=== PATIENT | male | born 1940 | race Caucasian/White ===

== ENCOUNTER → 2019-02-03 | Day surgery (SDC) | payer MEDICARE ==
[2019-01-26 11:15] LABS: BASOPHILS # (AUTO) 0.1 (0.0-0.1); BASOPHILS % 0.8 % (0.0-1.0); EOSINOPHILS # (AUTO) 0.2 (0.0-0.4); HEMATOCRIT 42.9 % (38.2-49.6); HEMOGLOBIN 13.8 g/dL (14.0-18.0); LYMPHOCYTES # (AUTO) 2.4 (1.0-3.2); LYMPHOCYTES % 31.5 % (18.0-39.1); MEAN CORPUSCULAR HEMOGLOBIN 30.4 pg (28-32); MEAN CORPUSCULAR HGB CONC 32.2 g/dL (31-35); MEAN CORPUSCULAR VOLUME 94.5 fL (81-99); MONOCYTES # (AUTO) 0.7 (0.2-0.8); MONOCYTES % 9.4 % (4.4-11.3); NEUTROPHILS # (AUTO) 4.2 (2.1-6.9); PLATELET COUNT 158 x10e3/uL (140-360); RED BLOOD COUNT 4.54 x10e6/uL (4.3-5.7); RED CELL DISTRIBUTION WIDTH 13.2 % (11.7-14.4)
[~2019-02-03] MED LIST: CARVEDILOL3.125 MG PO; FENTANYL CITRATE/PF 100MCG/2 ML INJ ONE; FLOMAX0.4 MG PO; PLAVIX75 MG PO; PROPOFOL IV EMULSION 10 MG/ML 50 ML VIAL ONE; SIMVASTATIN10 MG PO
--- NOTE | 2019-02-03 07:10 | NUR ---
SPIRITUAL CARE - Pre-Surgery Assessment: Pt in bed. Pt's at bedside. Pt reported supportive attention from family and friends. Intervention: I provided pastoral presence, hospitality, and sympathetic listening. I acquainted pt with availability of tailer in while hospitalized. Outcome: Pt expressed appreciation for visit. No need for follow up indicated at this time. [facility] Department O: [phone] Pager: [phone] ([phone] number calling from)
[2019-02-03 09:42] VITALS: BP 135/76
== END | disposition home or self-care (01) ==
LOC: OR 05:23
PROVIDERS: ATTEND Internal Medicine Gastroenterology
DX: R13.10 Dysphagia, unspecified (principal); K29.70 Gastritis, unspecified, without bleeding; K64.8 Other hemorrhoids; Z71.3 Dietary counseling and surveillance; E66.3 Overweight; I25.810 Atherosclerosis of coronary artery bypass graft(s) without angina pectoris; I45.10 Unspecified right bundle-branch block; J45.909 Unspecified asthma, uncomplicated; I10 Essential (primary) hypertension; Z88.0 Allergy status to penicillin; Z01.810 Encounter for preprocedural cardiovascular examination; Z01.812 Encounter for preprocedural laboratory examination; Z79.02 Long term (current) use of antithrombotics/antiplatelets; Z68.28 Body mass index [BMI] 28.0-28.9, adult; Z87.891 Personal history of nicotine dependence; Z95.1 Presence of aortocoronary bypass graft
CPT/HCPCS: 36415; 43239; 43249; 45378; 85025; 88305; 88312; 93005; J2704; J3010

== ENCOUNTER 2019-10-05 21:21 | Emergency (ER) | payer MEDICARE ==
[~2019-10-05 21:21] MED LIST changes: -FENTANYL CITRATE/PF 100MCG/2 ML INJ ONE; -PROPOFOL IV EMULSION 10 MG/ML 50 ML VIAL ONE
[2019-10-05] MEDS ORDERED: HYDRALAZINE HCL 20 MG/ML VIAL IV STA (21:41)
[2019-10-05] MEDS ORDERED: HYDRALAZINE HCL 20 MG/ML VIAL ONE (21:58)
--- NOTE | 2019-10-05 22:00 | NUR ---
INFORMED MD OF BP COMING DOWN WITHOUT MED. STATES HOLD HYDRALAZINE FOR NOW.
--- NOTE | 2019-10-05 22:52 | Emergency Department Note ---
History of Present Illnes History of Present Illness Chief Complaint: Hypertension History of Present Illness This is a 79 year old male . 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 Any updates have been documented here. Past Medical History Recent Fever: No Clinical Suspicion of Infectio: No New/Unexplained Change in Ment: No Past Medical History: Hypertension Other Medical History: ENLARGED PROSTATE Past Surgical History: Appendectomy Other Surgery: TRIPLE BYPASS 2007 Social History Smoking Cessation: Former smoker Alcohol Use: None Any Illegal Drug Use: No TB Exposure/Symptoms: No Physically hurt or threatened: No Other Last Tetanus: UNK Any Pre-Existing Lines (PICC,: No Is patient up to date on immun: No Last Flu: UNKNOWN Last Pneumovax: 2007 Review of Systems Review of Systems Review of other systems All other systems reviewed and negative. Physical Exam Related Data Allergies: Coded Allergies: Penicillins (Verified Allergy, Unknown, nausea, break out in sweats, agitated, 01/26/19) Triage Vital Signs Vital Signs Date Time Temp Pulse Resp B/P (MAP) Pulse Ox O2 Delivery O2 Flow Rate FiO2 10/05/19 21:28 97.2 74 18 205/98 97 Physical Exam CONSTITUTIONAL HENT EYES NECK PULMONARY CARDIOVASCULAR GASTROINTESTINAL GENITOURINARY SKIN MUSCULOSKELETAL NEUROLOGICAL PSYCHOLOGICAL Critical Care Time Subsequent provider I assumed direction of critical care for this patient from another provider of my specialty. Assessment & Plan Assessment & Plan Problems: (1) Hypertensive urgency Assessment & Plan HYPERTENSIVE URGENCY Reassessment Reassessment FEELING BETTER BP DOWN WANTS TO GO HOME Last Vital Signs Date Time Temp Pulse Resp B/P (MAP) Pulse Ox O2 Delivery O2 Flow Rate FiO2 10/05/19 22:47 58 18 156/80 96 10/05/19 21:28 97.2 Home Meds Reported Medications Tamsulosin Hcl* (FLOMAX*) 0.4 Mg Cap, 0.4 MG PO HS 01/25/13 Simvastatin (SIMVASTATIN) 10 Mg Tablet, 10 MG PO DAILY 01/25/13 Clopidogrel Bisulfate* (PLAVIX) 75 Mg Tablet, 75 MG PO DAILY 01/25/13 Carvedilol (CARVEDILOL) 3.125 Mg Tablet, 3.125 MG PO BID 01/25/13 Medications in the ED Hydralazine HCl 10 mg NOW STAT IV Last administered on 10/05/19at 22:32; Admin Dose 10 MG; Start 10/05/19 at 21:41; Stop 10/05/19 at 21:43; Status DC Hydralazine HCl 20 mg STK-MED ONCE .ROUTE ; Start 10/05/19 at 21:58; Stop 10/05/19 at 21:56; Status DC BIJAL STOKES MD October 05, 2019 22:52
[2019-10-05 22:58] VITALS: BP 156/80
== END 2019-10-05 22:55 | disposition home or self-care (01) ==
LOC: FSED 21:21
DX: I16.0 Hypertensive urgency (principal); Z87.891 Personal history of nicotine dependence
CPT/HCPCS: 80053; 85025; 93005; 96374; 99283; J0360

== ENCOUNTER 2021-05-10 20:57 | Observation (INO) | payer MEDICARE ==
[~2021-05-10] VITALS: Ht 175.3 cm; Wt 78.0 kg
[2021-05-10 21:24] LABS: BASOPHILS # (AUTO) 0.1 (0.0-0.1); BASOPHILS % 0.9 % (0.0-1.0); EOSINOPHILS # (AUTO) 0.4 (0.0-0.4); EOSINOPHILS % 4.8 % (0.0-6.0); HEMATOCRIT 40.9 % (38.2-49.6); HEMOGLOBIN 13.1 g/dL (14.0-18.0); LYMPHOCYTES # (AUTO) 2.7 (1.0-3.2); LYMPHOCYTES % 31.6 % (18.0-39.1); MEAN CORPUSCULAR HEMOGLOBIN 30.3 pg (28-32); MEAN CORPUSCULAR VOLUME 94.7 fL (81-99); MONOCYTES % 12.2 % (4.4-11.3); NEUTROPHILS # (AUTO) 4.3 (2.1-6.9); NEUTROPHILS % 50.1 % (38.7-80.0); PLATELET COUNT 158 x10e3/uL (140-360); RED BLOOD COUNT 4.32 x10e6/uL (4.3-5.7); RED CELL DISTRIBUTION WIDTH 13.2 % (11.7-14.4)
[2021-05-10 21:43] LABS: ALBUMIN 3.5 g/dL (3.5-5.0); ALBUMIN/GLOBULIN RATIO 1.2 (0.8-2.0); ANION GAP 12.7 mmol/L (8-16); CALCIUM 8.2 mg/dL (8.4-10.2); CREATININE, SERUM 0.78 mg/dL (0.72-1.25); POTASSIUM 3.7 mmol/L (3.5-5.1)
[2021-05-10 21:50] LABS: CREATINE KINASE MB 2.6 ng/mL (0-5.0)
[2021-05-10] MEDS ORDERED: HYDRALAZINE HCL 20 MG/ML VIAL IV STA ×2 (23:04→23:57)
[2021-05-10] MEDS ORDERED: HYDRALAZINE HCL 20 MG/ML VIAL ONE (23:14)
[2021-05-11] VITALS (8 sets, daily range): BP systolic 131–161; BP diastolic 67–83
[2021-05-11] MEDS ORDERED: Morphine 2mg Syringe 2 MG/ML SYR IV PRN (00:45)
[2021-05-11 01:23] LABS: CREATINE KINASE MB 2.6 ng/mL (0-5.0)
[2021-05-11] MEDS ORDERED: HYDRALAZINE HCL 20 MG/ML VIAL IV STA (01:55)
[2021-05-11] MEDS ORDERED: ALBUTEROL/IPRATROPIUM 3 ML NEB NEB ONE (02:15)
[2021-05-11] MEDS ORDERED: LISINOPRIL10 MG PO (04:11)
[2021-05-11] MEDS: ONDANSETRON HCL INJ 2MG/ML 2ML 2 MG/ML VIAL IV PRN ×4 (04:45→22:21)
[2021-05-11] MEDS: ALBUTEROL/IPRATROPIUM 3 ML NEB NEB SCH ×5 (07:00→22:42)
[2021-05-11] MEDS ORDERED: CARVEDILOL 3.125 MG TAB PO SCH (09:00)
[2021-05-11] MEDS: LISINOPRIL 10 MG TAB PO SCH ×2 (09:00→17:35)
[2021-05-11] MEDS: CLOPIDOGREL BISULFATE 75 MG TAB PO SCH (09:00)
[2021-05-11] MEDS ORDERED: HYDRALAZINE HCL 20 MG/ML VIAL IV PRN (09:15)
[2021-05-11 09:32] LABS: CREATINE KINASE MB 2.4 ng/mL (0-5.0)
[2021-05-11] MEDS ORDERED: AMLODIPINE BESYLATE 5 MG TAB PO ONE (10:00)
[2021-05-11] MEDS ORDERED: TAMSULOSIN HCL 0.4 MG CAP PO SCH (17:00)
[2021-05-11] MEDS: CARVEDILOL 3.125 MG TAB PO SCH (17:00)
[2021-05-11 17:39] LABS: CREATINE KINASE MB 2.3 ng/mL (0-5.0)
[2021-05-11] MEDS ORDERED: CARVEDILOL 12.5 MG TAB ONE (17:53)
[2021-05-11] MEDS ORDERED: ATORVASTATIN 20 MG TAB PO SCH (21:00)
[2021-05-11] MEDS ORDERED: ACETAMINOPHEN 325 MG TAB PO PRN (22:45)
[2021-05-12] VITALS: BP 157/82
[2021-05-12] MEDS: ALBUTEROL/IPRATROPIUM 3 ML NEB NEB SCH ×2 (02:50→07:00)
[2021-05-12 04:00] VITALS: BP 147/71
[2021-05-12 07:56] VITALS: BP 145/90
[2021-05-12] MEDS: CLOPIDOGREL BISULFATE 75 MG TAB PO SCH (08:57)
[2021-05-12] MEDS: LISINOPRIL 10 MG TAB PO SCH (08:57)
[2021-05-12] MEDS: CARVEDILOL 3.125 MG TAB PO SCH (08:57)
== END 2021-05-12 09:43 | disposition home or self-care (01) ==
LOC: ER 21:13 → ERHOLD 05-11 00:49 → MED/SURG 05-11 02:00
PROVIDERS: ADMIT Internal Medicine; ATTEND Internal Medicine
DX: R07.9 Chest pain, unspecified (principal); I16.0 Hypertensive urgency; I25.10 Atherosclerotic heart disease of native coronary artery without angina pectoris; Z95.1 Presence of aortocoronary bypass graft; N40.0 Benign prostatic hyperplasia without lower urinary tract symptoms; Z88.0 Allergy status to penicillin; E78.5 Hyperlipidemia, unspecified; Z20.822 Contact with and (suspected) exposure to COVID-19
CPT/HCPCS: 36415 ×3; 70450; 71045; 80053; 80061; 82550 ×2; 82553 ×2; 83880; 84484 ×2; 85025; 93005; 93306; 94640 ×3; 94799 ×2; 99284; G0378 ×2; J0360 ×2; J2270; J2405; U0002

== ENCOUNTER 2021-09-27 19:19 | Emergency (ER) | payer MEDICARE ==
[~2021-09-27] VITALS: Ht 175.3 cm; Wt 78.0 kg
[~2021-09-27 19:19] MED LIST changes: +LISINOPRIL10 MG PO
[2021-09-27 19:56] LABS: BASOPHILS % 0.4 % (0.0-1.0); EOSINOPHILS # (AUTO) 0.1 (0.0-0.4); EOSINOPHILS % 0.6 % (0.0-6.0); HEMATOCRIT 42.1 % (38.2-49.6); HEMOGLOBIN 13.5 g/dL (14.0-18.0); LYMPHOCYTES # (AUTO) 2.5 (1.0-3.2); LYMPHOCYTES % 22.6 % (18.0-39.1); MEAN CORPUSCULAR HEMOGLOBIN 30.5 pg (28-32); MEAN CORPUSCULAR HGB CONC 32.1 g/dL (31-35); MEAN CORPUSCULAR VOLUME 95.2 fL (81-99); MONOCYTES # (AUTO) 1.1 (0.2-0.8); MONOCYTES % 10.5 % (4.4-11.3); NEUTROPHILS # (AUTO) 7.1 (2.1-6.9); NEUTROPHILS % 65.5 % (38.7-80.0); PLATELET COUNT 163 x10e3/uL (140-360); RED BLOOD COUNT 4.42 x10e6/uL (4.3-5.7); RED CELL DISTRIBUTION WIDTH 13.8 % (11.7-14.4)
[2021-09-27 20:12] LABS: ANION GAP 11.8 mmol/L (8-16); CALCIUM 8.1 mg/dL (8.4-10.2); CREATININE, SERUM 0.81 mg/dL (0.72-1.25); POTASSIUM 3.8 mmol/L (3.5-5.1)
[2021-09-27] MEDS ORDERED: IOPAMIDOL 370 MG/ML 100 ML INFUS..BTL INJ ONE (20:30)
== END 2021-09-27 23:43 | disposition home or self-care (01) ==
LOC: ER 19:21
DX: R13.10 Dysphagia, unspecified (principal); I10 Essential (primary) hypertension; E78.5 Hyperlipidemia, unspecified; J45.909 Unspecified asthma, uncomplicated
CPT/HCPCS: 36415; 70491; 71260; 80048; 85025; 99284; Q9967